=== PATIENT | female | born 1995 | race Caucasian/White ===

== ENCOUNTER 2016-03-23 02:45 | Emergency (ER) | payer MEDICAID ==
[~2016-03-23] VITALS: Ht 160 cm; Wt 97.0 kg
[~2016-03-23 02:45] MED LIST: PRENAT PO
[2016-03-23 03:00] VITALS: Ht 160 cm; Wt 97.0 kg
--- NOTE | 2016-03-23 03:35 | ERD ---
ER Documentation Chief Complaint Date/Time DATE: 03/23/16 TIME: 03:33 Chief Complaint pelvic pain,12 wks ,LPM 12/12/2015 HPI 20-year-old female presents to emergency department for complaints of pelvic pain radiating to the back started today. Patient described the pain as cramping pain, 4/10 scale, intermittent. Patient denies any nausea vomiting diarrhea or constipation. Patient denies hematuria or dysuria. Patient denies any vaginal bleeding. Patient is approximately 12 weeks . 1 para 0 0. Patient denies any vaginal itching or vaginal discharge. Patient did not take any medications up and symptoms. ROS All systems reviewed and are negative except as per history of present illness. Medications Home Meds Active Scripts Cephalexin* (Keflex*) 500 Mg Capsule, 500 MG PO QID for 7 Days, CAP Prov:MARIA ESTHER TALBOT SURGICAL INSTRUMENT TECHNICIAN 03/23/16 Acetaminophen* (Tylophen*) 500 Mg Capsule, 1 CAP PO Q6H Y for PAIN AND OR ELEVATED TEMP, #20 CAP Prov:MARIA ESTHER TALBOT SURGICAL INSTRUMENT TECHNICIAN 03/23/16 Reported Medications Multivit/Min/Fol Ac/Iron/Pren* ( S*) Unknown Strength Tab, PO DAILY, TAB 01/29/16 Allergies Allergies: Coded Allergies: No Known Allergy (Unverified , 01/29/16) PMhx/Soc Medical and Surgical Hx: pt denies Medical Hx, pt denies Surgical Hx History of Surgery: No Anesthesia Reaction: No Hx Neurological Disorder: No Hx Respiratory Disorders: No Hx Cardiac Disorders: No Hx Psychiatric Problems: No Hx Miscellaneous Medical Probl: No Hx Alcohol Use: No Hx Substance Use: No Hx Tobacco Use: No Smoking Status: Former smoker FmHx Family History: No coronary disease, No diabetes, No other Physical Exam Vitals Vital Signs Date Time Temp Pulse Resp B/P Pulse Ox O2 Delivery O2 Flow Rate FiO2 03/23/16 03:00 98.1 106 18 140/76 100 Physical Exam GENERAL: The patient is well developed and appropriate for usual state of health, in no apparent distress. CHEST: Clear to auscultation bilaterally. There are no rales, wheezes or rhonchi. HEART: Regular rate and rhythm. No murmurs, clicks, rubs or gallops. No S3 or S4. ABDOMEN: Soft, nontender and nondistended. Good bowel sounds. No rebound or guarding. No gross peritonitis. No gross organomegaly or masses. No Leos sign or McBurney point tenderness. BACK: No midline or flank tenderness. EXTREMITIES: Equal pulses bilaterally. There is no peripheral clubbing, cyanosis or edema. No focal swelling or erythema. Full range of motion. Grossly neurovascularly intact. NEURO: Alert and oriented. Cranial nerves 2-12 intact. Motor strength in all 4 extremities with 5/5 strength. Sensation grossly intact. Normal speech and gait. SKIN: There is no apparent rash or petechia. The skin is warm and dry. HEMATOLOGIC AND LYMPHATIC: There is no evidence of excessive bruising or lymphedema. No gross cervical, axillary, or inguinal lymphadenopathy. Result Diagram: 03/23/16 0430 Results 24 hrs Laboratory Tests Test 03/23/16 04:30 03/23/16 04:45 Basophils # 0.010^3/ul Basophils % 0.3% Beta HCG, Quantitative 91482.0mIU/ml Blood Morphology Comment Eosinophils # 0.710^3/ul Eosinophils % 5.9% Hematocrit 33.4% Hemoglobin 11.4g/dl Lymphocytes # 3.010^3/ul Lymphocytes % 25.2% Mean Corpuscular Hemoglobin 28.1pg Mean Corpuscular Hemoglobin Concent 34.1g/dl Mean Corpuscular Volume 82.5fl Mean Platelet Volume 8.2fl Monocytes # 0.610^3/ul Monocytes % 4.7% Neutrophils # 7.510^3/ul Neutrophils % 63.9% Nucleated Red Blood Cells # 0.010^3/ul Nucleated Red Blood Cells % 0.0/100WBC Platelet Count 74962^3/UL Red Blood Count 4.0410^6/ul Red Cell Distribution Width 13.9% White Blood Count 11.810^3/ul Urine Bacteria MODERATE Urine Bilirubin NEGATIVE Urine Clarity CLEAR Urine Color LT. YELLOW Urine Glucose NEGATIVE% Urine Hemoglobin NEGATIVE Urine Ketones NEGATIVE Urine Leukocyte Esterase 1+ Urine Microscopic RBC 0-2/HPF Urine Microscopic WBC 5-10/HPF Urine Nitrite NEGATIVE Urine Specific [place] 1.025 Urine Squamous Epithelial Cells MODERATE Urine Total Protein NEGATIVE Urine Urobilinogen 0.2 E.U./dL Urine pH 6.0 PROCEDURE: US OB. CLINICAL INDICATION: . Pelvic pain. Clinical estimated gestational age is 12 weeks 3 days with estimated date of delivery 10/02/2016 TECHNIQUE: Transabdominal imaging of the gravid uterus was performed. Images are reviewed on a high-resolution PACS workstation. COMPARISON: 01/31/2016 FINDINGS: Intrauterine is identified. The crown-rump length equals 5.79 cm. The estimated gestational age equals 12 weeks 2 days by ultrasound criteria. Normal cardiac activity is identified at 168 beats per minute. No subchorionic hemorrhage is identified. There is a 2.5 x 1.7 x 1.8 cm oval area of heterogeneous relative decreased echogenicity echotexture suggestive of an intramural and subserosal fibroid in the right anterior fundus mildly increased in size compared to the previous study. Neither ovary seen. No adnexal mass or free intrapelvic fluid is seen. IMPRESSION: Single live intrauterine with an estimated gestational age of 12 weeks 2 days by ultrasound criteria and an estimated date of delivery of 2016. Suggestive of uterine fibroid noted above mildly increased in size compared to previous study. Please see above. RPTAT: HJES .Rickie Mccormack MD, MD Date Time Electronically viewed and signed by .Rickie Mccormack MD, MD on 03/23/2016 04:00 .S/ CC: MARIA ESTHER TALBOT SURGICAL INSTRUMENT TECHNICIAN Procedures/MDM Medical Decision Making: Patient's pelvic pain most likely is from the urinary tract infection that she has, also can be from the growing she's on her second trimester and this is her first . She also has a uterine fibroid seen in the ultrasound, most likely can be causing the pain also. No symptoms of pyelonephritis at this time. No CVA tenderness noted. There is low suspicion for abdominal emergencies at this time. Patients abdominal exam is normal at this time. Ultrasound shows a viable . There is low suspicion for appendicitis, cholecystitis, abdominal aortic aneurysms or peritonitis at this time. There is low suspicion for sepsis. Patient appears well and is hemodynamically stable. Disposition: Home. Condition: Stable Prescription Tylenol, Keflex Instructions: Patient is advised to take medications as prescribed. Patient is advised to rest, increase fluid intake and do brat diet for next 1-2 days and progress as tolerated, do good perineal hygiene.. Patient is advised that if symptoms are worse, severe abdominal pain, uncontrolled vomiting, high fever, severe flank pain, worst signs and symptoms, to return to the emergency department immediately. Otherwise, patient can follow up with primary care doctor in 5-7 days. Departure Diagnosis: Primary Impression: UTI (urinary tract infection) Urinary tract infection type: acute cystitis Hematuria presence: without hematuria Qualified Code: N30.00 - Acute cystitis without hematuria Additional Impressions: Fibroid, uterine Uterine leiomyoma location: unspecified location Qualified Code: D25.9 - Uterine leiomyoma, unspecified location Pelvic pain Intrauterine Condition: Stable Patient Instructions: Pelvic Pain In : Unclear (2-3 Trimester), Understanding Urinary Tract Infections (UTIs), Uterine Fibroids Additional Instructions: Patient is advised to take medications as prescribed. Patient is advised to rest , increase fluid intake and do brat diet for next 1-2 days and progress as tolerated, do good perineal hygiene.. Patient is advised that if symptoms are worse, severe abdominal pain, uncontrolled vomiting, high fever, severe flank pain, worst signs and symptoms, to return to the emergency department immediately. Otherwise, patient can follow up with primary care doctor in 5-7 days. MARIA ESTHER TALBOT NP Mar 23, 2016 03:35
--- NOTE | 2016-03-23 04:00 | RADRPT ---
PROCEDURE: US OB. CLINICAL INDICATION: . Pelvic pain. Clinical estimated gestational age is 12 weeks 3 da ys with estimated date of delivery 10/02/2016 TECHNIQUE: Transabdominal imaging of the gravid uterus was performed. Images are reviewed on a h igh-resolution PACS workstation. COMPARISON: 01/31/2016 FINDINGS: Intrauterine is identified. The crown-rump length equals 5.79 cm. The estimated gestatio nal age equals 12 weeks 2 days by ultrasound criteria. Normal cardiac activity is identified a t 168 beats per minute. No subchorionic hemorrhage is identified. There is a 2.5 x 1.7 x 1.8 cm ova l area of heterogeneous relative decreased echogenicity echotexture suggestive of an intramural and subserosal fibroid in the right anterior fundus mildly increased in size compared to the previous [facility]. Neither ovary seen. No adnexal mass or free intrapelvic fluid is seen. IMPRESSION: Single live intrauterine with an estimated gestational age of 12 weeks 2 days by ultrasoun d criteria and an estimated date of delivery of 10/03/2016. Suggestive of uterine fibroid noted abov e mildly increased in size compared to previous study. Please see above. RPTAT: HJES .Rickie Mccormack MD, MD Date Time Electronically viewed and signed by .Rickie Mccormack MD, on 03/23/2016 04:00 .S/
[2016-03-23 04:54] LABS: BASOPHILS % 0.3 % (0.0-2.0); EOSINOPHILS # 0.7 10^3/ul (0.0-0.5); EOSINOPHILS % 5.9 % (0.0-7.0); HEMATOCRIT 33.4 % (37.0-47.0); HEMOGLOBIN 11.4 g/dl (12.0-16.0); LYMPHOCYTES % 25.2 % (18.0-55.0); MEAN CORPUSCULAR HEMOGLOBIN 28.1 pg (29.0-33.0); MEAN CORPUSCULAR HGB CONC 34.1 g/dl (32.0-37.0); MEAN CORPUSCULAR VOLUME 82.5 fl (72.0-104.0); MEAN PLATELET VOLUME 8.2 fl (7.4-10.4); MONOCYTE # 0.6 10^3/ul (0.3-0.9); MONOCYTES % 4.7 % (0.0-13.0); NEUTROPHIL # 7.5 10^3/ul (1.6-7.5); NEUTROPHILS % 63.9 % (30.0-74.0); PLATELET COUNT 281 10^3/UL (140-440); RED BLOOD COUNT 4.04 10^6/ul (4.20-5.40); RED CELL DISTRIBUTION WIDTH 13.9 % (11.5-14.5); UNCORRECTED WBC 11.8 10^3/ul (4.8-10.8); WHITE BLOOD COUNT 11.8 10^3/ul (4.8-10.8)
[2016-03-23 04:57] LABS: ADD UMIC YES; URINE BILIRUBIN (Dip) NEGATIVE (NEGATIVE); URINE BLOOD (Dip) NEGATIVE (NEGATIVE); URINE COLOR LT. YELLOW (YELLOW); URINE GLUCOSE (Dip) NEGATIVE (NEGATIVE); URINE KETONES (Dip) NEGATIVE (NEGATIVE); URINE LEUKOCYTE ESTERASE (Dip) 1+ (NEGATIVE); URINE NITRITE (Dip) NEGATIVE (NEGATIVE); URINE TOTAL PROTEIN (Dip) NEGATIVE (NEGATIVE); URINE UROBILINOGEN (Dip) 0.2 E.U./dL (0.1-1.0)
[2016-03-23 05:06] LABS: CONDITION 1
[2016-03-23 05:11] LABS: BACTERIA,URINE MODERATE; SQUAMOUS EPITHELIAL CELL,UR MODERATE; URINE RBCS 0-2 /HPF (0)
[2016-03-23] MEDS ORDERED: ACET500C5 PO (05:18)
[2016-03-23] MEDS ORDERED: CEPH-443 PO (05:18)
== END 2016-03-23 06:00 | disposition home or self-care (01) ==
LOC: FTE 02:45
DX: O26.891 Other specified pregnancy related conditions, first trimester (principal); O23.11 Infections of bladder in pregnancy, first trimester; O34.11 Maternal care for benign tumor of corpus uteri, first trimester; R10.2 Pelvic and perineal pain; Z87.891 Personal history of nicotine dependence; Z3A.12 12 weeks gestation of pregnancy
CPT/HCPCS: 36415; 76805; 81001; 81003; 84702; 85025; 86900; 86901

== ENCOUNTER 2016-05-08 19:15 | Emergency (ER) | payer MEDICAID ==
[~2016-05-08] VITALS: Ht 160 cm; Wt 97.0 kg
[~2016-05-08 19:15] MED LIST changes: +ACET500C5 PO; +CEPH-443 PO
[2016-05-08 19:40] VITALS: Ht 160 cm; Wt 97.0 kg
[2016-05-08 21:18] LABS: ADD UMIC YES; URINE BILIRUBIN (Dip) NEGATIVE (NEGATIVE); URINE BLOOD (Dip) NEGATIVE (NEGATIVE); URINE GLUCOSE (Dip) NEGATIVE (NEGATIVE); URINE KETONES (Dip) TRACE (NEGATIVE); URINE LEUKOCYTE ESTERASE (Dip) TRACE (NEGATIVE); URINE NITRITE (Dip) NEGATIVE (NEGATIVE); URINE TOTAL PROTEIN (Dip) NEGATIVE (NEGATIVE); URINE UROBILINOGEN (Dip) 1.0 E.U./dL (0.1-1.0)
[2016-05-08 21:21] LABS: URINE COLOR YELLOW (YELLOW)
--- NOTE | 2016-05-08 21:34 | RADRPT ---
PROCEDURE: US OB. US OB Transabd 03/20 Tri CLINICAL INDICATION: lower pelvic pain, back pain TECHNIQUE: Multiple sonographic images of the pelvis were obtained. The images were reviewed on a PACS workstation. COMPARISON: No prior studies are available for comparison. FINDINGS: The cervix is closed with a length of . There is a single viable intrauterine gestation. Cardiac activity is present with beats per minute . There is a breech presentation. Measurements were made in order to determine age. The results are as follows: BPD =4.2 cm. HC =15.5 cm. AC =5.5 cm. FL =2.9 cm. Estimated gestational age of approximately 18 weeks and 5 days. The estimated date of delivery is 10/04/2016. Estimated delivery date by last menstrual period is 0 09/30/2016 The EFW = 265 grams, 26 percentile . The placenta is anterior, grade 0, with a placental berger identified. There is no evidence for an abr uption or placenta previa. There is a normal appearing amount of amniotic fluid with maximum vertical pocket measuring 5.0 cm. There are no adnexal masses. IMPRESSION: Single viable intrauterine gestation of approximately 18 weeks and 5 days. The estimated date of de livery is 10/04/2016 RPTAT: HBST . .Yazan Davis MD, Date Time Electronically viewed and signed by .Yazan Davis MD, on 05/08/2016 21:34 .T/
[2016-05-08 21:35] LABS: BACTERIA,URINE MODERATE; MUCUS,URINE FEW; SQUAMOUS EPITHELIAL CELL,UR MODERATE; URINE RBCS 0-2 /HPF (0)
[2016-05-08] MEDS ORDERED: CEPH-443 PO (22:25)
[2016-05-08] MEDS ORDERED: ACET325T33 PO (22:25)
[2016-05-08 22:32] VITALS: BP 141/71; PULSE 88; RESP 18; TEMP 98.3
--- NOTE | 2016-05-08 22:34 | ERD ---
ER Documentation Chief Complaint Date/Time DATE: 05/08/16 TIME: 22:27 Chief Complaint 19 wks , lower abd pain, back pain HPI 20-year-old female with no significant past medical history is a presents the ED complaining of lower pelvic pain and lower back pain that started 2 days ago. Reports that she has some dysuria but denies any hematuria, urgency, frequency, burning with urination. Denies any fever, chills, chest pain, shortness of breath, cough, rhinorrhea, rashes. Denies any vaginal bleeding or vaginal discharge. Reports that her last menses was on December 13, 2015. ROS All systems reviewed and are negative except as per history of present illness. Medications Home Meds Active Scripts Acetaminophen* (Tylenol*) 325 Mg Tablet, 2 TAB PO Q8 Y for PAIN AND OR ELEVATED TEMP, #20 TAB Prov:BERNARDO HERNANDEZ PA-C 05/08/16 Cephalexin* (Keflex*) 500 Mg Capsule, 500 MG PO QID for 7 Days, CAP Prov:BERNARDO HERNANDEZ PA-C 05/08/16 Cephalexin* (Keflex*) 500 Mg Capsule, 500 MG PO QID for 7 Days, CAP Prov:MARIA ESTHER TALBOT INSPECTOR ELECTROMECHANICAL 03/23/16 Acetaminophen* (Tylophen*) 500 Mg Capsule, 1 CAP PO Q6H Y for PAIN AND OR ELEVATED TEMP, #20 CAP Prov:MARIA ESTHER TALBOT INSPECTOR ELECTROMECHANICAL 03/23/16 Reported Medications Multivit/Min/Fol Ac/Iron/Pren* ( S*) Unknown Strength Tab, PO DAILY, TAB 01/29/16 Allergies Allergies: Coded Allergies: No Known Allergy (Unverified , 01/29/16) PMhx/Soc History of Surgery: No Anesthesia Reaction: No Hx Neurological Disorder: No Hx Respiratory Disorders: No Hx Cardiac Disorders: No Hx Psychiatric Problems: No Hx Miscellaneous Medical Probl: No (DENIES MED AND SURG HX.) Hx Alcohol Use: No Hx Substance Use: No Hx Tobacco Use: Yes Smoking Status: Never smoker Physical Exam Vitals Vital Signs Date Time Temp Pulse Resp B/P Pulse Ox O2 Delivery O2 Flow Rate FiO2 05/08/16 19:40 98.1 114 20 135/85 100 Physical Exam Const: [id number], well-nourished. In no acute distress. Head: Atraumatic, normocephalic Eyes: Normal Conjunctiva without injection. No purulent discharge. ENT: Normal external ear, nose. Moist oropharynx without tonsillar exudates. Non -erythematous pharynx. Uvula midline. No drooling. No trismus. Neck: No cervical midline tenderness. Full range of motion. No meningismus. No cervical lymphadenopathy. No JVD. Resp: Clear to auscultation bilaterally. No wheezing, rhonchi, rales, or crackles. No accessory muscle use. No retractions. Cardio: Regular rate and rhythm. No murmurs, rubs or gallops. Abd: Soft, lower suprapubic tenderness, non distended. Normal bowel sounds. No palpable masses. No rebound tenderness. No guarding. Negative McBurney's point. Negative psoas sign. Negative obturator sign. Skin: No petechiae or rashes Back: No midline tenderness. No CVA tenderness. Rest palpation of the bilateral lumbar muscles. Ext: No cyanosis, or edema. Neur: Awake and alert. Normal gait. Normal coordination. Psych: Normal Mood and Affect Results 24 hrs Laboratory Tests Test 05/08/16 20:36 05/08/16 20:56 Urine Color YELLOW Urine Clarity SLIGHTLY CLOUDY Urine pH 6.5 Urine Specific [place] 1.020 Urine Ketones TRACE Urine Nitrite NEGATIVE Urine Bilirubin NEGATIVE Urine Urobilinogen 1.0 E.U./dL Urine Leukocyte Esterase TRACE Urine Microscopic RBC 0-2/HPF Urine Microscopic WBC 10-25/HPF Urine Squamous Epithelial Cells MODERATE Urine Bacteria MODERATE Urine Mucus FEW Urine Hemoglobin NEGATIVE Urine Glucose NEGATIVE% Urine Total Protein NEGATIVE Beta HCG, Quantitative 49463.0mIU/ml Procedures/MDM This is a 20-year-old female with no significant past medical history is a presents the ED complaining of lower abdominal and lower back pain associated with dysuria. Patient is afebrile and nontoxic-appearing. A pelvic ultrasound, beta Hcg, urinalysis was ordered to further evaluate patient. Urinalysis showed trace leukocyte esterase 10-25. PROCEDURE: US OB. US OB Transabd 03/20 Tri CLINICAL INDICATION: lower pelvic pain, back pain TECHNIQUE: Multiple sonographic images of the pelvis were obtained. The images were reviewed on a PACS workstation. COMPARISON: No prior studies are available for comparison. FINDINGS: The cervix is closed with a length of . There is a single viable intrauterine gestation. Cardiac activity is present with beats per minute. There is a breech presentation. Measurements were made in order to determine age. The results are as follows: BPD = 4.2 cm. HC = 15.5 cm. AC = 5.5 cm. FL = 2.9 cm. Estimated gestational age of approximately 18 weeks and 5 days. The estimated date of delivery is 10/04/2016. Estimated delivery date by last menstrual period is 09/30/2016 The EFW = 265 grams, 26 percentile . The placenta is anterior, grade 0, with a placental berger identified. There is no evidence for an abruption or placenta previa. There is a normal appearing amount of amniotic fluid with maximum vertical pocket measuring 5.0 cm. There are no adnexal masses. IMPRESSION: Single viable intrauterine gestation of approximately 18 weeks and 5 days. The estimated date of delivery is 10/04/2016 Patient has a single viable intrauterine of 18 weeks and 5 days. Patient also has a urinary tract infection and is appropriate for outpatient management with a course of antibiotics. Low suspicion for symptomatic anemia, ectopic , sepsis, PID, appendicitis, ovarian torsion, tubo-ovarian abscess, surgical abdomen, or other emergent conditions. Patient was educated that there is a risk for threatened . Patient is ambulating here in the ED without difficulty. Denies saddle anesthesia, numbness or tingling, urine or bowel incontinence, weakness. Low suspicion for cauda equina syndrome, cord compression, nephrolithiasis, aortic aneurysm, aortic dissection, epidural abscess, spinal hematoma, malignancy, pyelonephritis, degenerative disc disease , spinal stenosis, or other emergent conditions. Discharge medications: Keflex, Tylenol Patient to follow up with [facility] in 2 days for further evaluation and treatment. Patient is to return sooner to the ED for any worsening symptoms. Patient's questions were answered. Patient understood and agreed with discharge plan. Departure Diagnosis: Primary Impression: Back pain during Additional Impression: Urinary tract infection Urinary tract infection type: site unspecified Hematuria presence: without hematuria Qualified Code: N39.0 - Urinary tract infection without hematuria, site unspecified Condition: Stable Patient Instructions: Back Pain During , Understanding Urinary Tract Infections (UTIs), Back Pain During : Moving Safely, Back Pain During : Positioning Yourself, Relieving Back Pain During : Wall Stretch, Body Bend Referrals: [facility] YOU HAVE RECEIVED A MEDICAL SCREENING EXAM AND THE RESULTS INDICATE THAT YOU DO NOT HAVE A CONDITION THAT REQUIRES URGENT TREATMENT IN THE EMERGENCY DEPARTMENT. FURTHER EVALUATION AND TREATMENT OF YOUR CONDITION CAN WAIT UNTIL YOU ARE SEEN IN YOUR DOCTORS OFFICE WITHIN THE NEXT 1-2 DAYS. IT IS YOUR RESPONSIBILITY TO MAKE AN APPOINTMENT FOR FOLOW-UP CARE. IF YOU HAVE A PRIMARY DOCTOR --you should call your primary doctor and schedule an appointment IF YOU DO NOT HAVE A PRIMARY DOCTOR YOU CAN CALL OUR PHYSICIAN REFERRAL HOTLINE AT IF YOU CAN NOT AFFORD TO SEE A PHYSICIAN YOU CAN CHOSE FROM THE FOLLOWING [facility] [address] [facility]. [facility] [address] [facility]. [facility] [address] [facility] [facility] [address]. [facility] [address] [facility]. [facility] [address] [facility]. [facility] YOU HAVE RECEIVED A MEDICAL SCREENING EXAM AND THE RESULTS INDICATE THAT YOU DO NOT HAVE A CONDITION THAT REQUIRES URGENT TREATMENT IN THE EMERGENCY DEPARTMENT. FURTHER EVALUATION AND TREATMENT OF YOUR CONDITION CAN WAIT UNTIL YOU ARE SEEN IN YOUR DOCTORS OFFICE WITHIN THE NEXT 1-2 DAYS. IT IS YOUR RESPONSIBILITY TO MAKE AN APPOINTMENT FOR FOLOW-UP CARE. IF YOU HAVE A PRIMARY DOCTOR --you should call your primary doctor and schedule and appointment IF YOU DO NOT HAVE A PRIMARY DOCTOR YOU CAN CALL OUR PHYSICIAN REFERRAL HOTLINE AT . IF YOU CAN NOT AFFORD TO SEE A PHYSICIAN YOU CAN CHOSE FROM THE FOLLOWING [facility]: [facility] [address] [place] [address] [facility] [address] [place] [address] [facility] [address] [place] [address] [facility] [place] [address] [place] [address] OFFICE FAX , [place] [address] [place], [place] [id number] DR. WHITFIELD, [place] [address] [place] [address] DR CONDON, [facility] [address], [address], [place] [address] DR GOLD, [facility] [address] [facility], [place] [address] [facility] [address] [place] [address] [address] [facility] [address] - THANIA MAURICIO [address] [address] DR ALONSO, [place] [address] [facility]. [address], [place] [address] CORINE SUAREZ [address] [place], [place] [id number] [facility] Hours: 8:00 am - 5:00 pm Additional Instructions: FOLLOW UP WITH YOUR [facility] in 2-3 days for further evaluation. Return to this facility if you are not improving as expected. BERNARDO HERNANDEZ PA-C May 08, 2016 22:34
== END 2016-05-08 22:32 | disposition home or self-care (01) ==
LOC: FTE 19:15
DX: O99.89 Other specified diseases and conditions complicating pregnancy, childbirth and the puerperium (principal); M54.5 Low back pain; O23.42 Unspecified infection of urinary tract in pregnancy, second trimester; O99.332 Smoking (tobacco) complicating pregnancy, second trimester; F17.210 Nicotine dependence, cigarettes, uncomplicated; R10.2 Pelvic and perineal pain; Z3A.19 19 weeks gestation of pregnancy
CPT/HCPCS: 76805; 81001; 81003; 84702; Z7502

== ENCOUNTER 2016-07-04 07:33 | Outpatient (CLI) | payer MEDICAID ==
[~2016-07-04] VITALS: Ht 157.5 cm; Wt 99.1 kg
[~2016-07-04 07:33] MED LIST changes: +ACET325T33 PO
[2016-07-04 07:51] VITALS: BP 128/81; PULSE 120; RESP 18; Ht 157.5 cm; Wt 99.1 kg
--- NOTE | 2016-07-04 09:29 | RADRPT ---
PROCEDURE: OB ultrasound for biophysical profile CLINICAL INDICATION: Decreased movement TECHNIQUE: Multiple sonographic images of the pelvis were obtained. Transabdominal views of the g ravid uterus are available for review. The images were reviewed on a PACS workstation. COMPARISON: None FINDINGS: breathing movement = 2/2 tone = 2/2 motion = 2/2 SATURNINO = 2/2 SATURNINO = 15.9 cm Single live intrauterine with cardiac activity of 159 bpm. position is cephal ic. The placenta is anterior. IMPRESSION: 1. Single live intrauterine gestation. 2. Biophysical profile = 8/8. 3. SATURNINO = 15.9 cm. RPTAT: HH .Padmini Fitzgerald MD, MD Date Time Electronically viewed and signed by .Padmini Fitzgerald MD, on 07/04/2016 09:29 .G/
[2016-07-04] MEDS ORDERED: UDROBDM PO ×2 (09:31→09:32)
--- NOTE | 2016-07-04 12:31 | QN ---
Documentation Comment 20 years old 1. para 0 at 27 weeks and 3 days chief complaint of cough biophysical profile normal,patient advised to go to the emergency room for her upper respiratory symptoms and cough to follow with the clinic thereafter RIANNA TAVERAS MD July 04, 2016 12:31
== END 2016-07-04 09:40 | disposition home or self-care (01) ==
LOC: OBT 07:33 → L-D 07:33 → OBT 07:40
PROVIDERS: ATTEND Obstetrics & Gynecology
DX: O26.892 Other specified pregnancy related conditions, second trimester (principal); R05 Cough; Z3A.27 27 weeks gestation of pregnancy
CPT/HCPCS: 76818; G0463

== ENCOUNTER 2016-08-20 16:21 | Outpatient (CLI) | payer MEDICAID ==
[~2016-08-20] VITALS: Ht 157.5 cm; Wt 102.7 kg
[~2016-08-20 16:21] MED LIST changes: -ACET325T33 PO; -ACET500C5 PO; -CEPH-443 PO; +UDROBDM PO
[2016-08-20 16:57] VITALS: Ht 157.5 cm; Wt 102.7 kg
--- NOTE | 2016-08-20 17:23 | RADRPT ---
PROCEDURE: Obstetrical ultrasound CLINICAL INDICATION: R/O Preeclampsia TECHNIQUE: Multiple sonographic images of the pelvis were obtained. The images were reviewed on a PACS workstation. COMPARISON: None FINDINGS: The cervix is not well visualized. There is a single viable intrauterine gestation. Cardiac activity is present with 148 beats per minute. There is a vertex presentation. The placenta is anterior. There is no evidence for an abruption or placenta previa. There is a subjectively normal amount of amniotic fluid. Measurements were made in order to determine age. The results are as follows (cm): BPD =8.50 HC =30.24 AC =29.78 FL =6.48 Estimated gestational age by ultrasound of approximately 33 weeks, 5 days. The estimated date of delivery by ultrasound is 10/03/2016. Estimated gestational age by LMP of approximately 34 weeks, 1 day. The estimated date of delivery by LMP is 09/30/2016. EFW = 2255 grams (30th percentile) IMPRESSION: Single viable intrauterine gestation of approximately 33 weeks, 5 days . The estimated date of delivery is 10/03/2016 . Dating by ultrasound is within 3 days of dating by LMP. Cephalic presentation. Estimated weight is in the 30th percentile. RPTAT: EE Physician Nagi Date Time Electronically viewed and signed by Physician Nagi on 08/20/2016 17:23 /
[2016-08-20 17:33] LABS: ADD UMIC YES; UR ASCORBIC ACID NEGATIVE (NEGATIVE); UR BILIRUBIN (Dip) NEGATIVE (NEGATIVE); UR BLOOD (Dip) NEGATIVE (NEGATIVE); UR CLARITY SLIGHTLY CLOUDY (CLEAR); UR COLOR YELLOW (YELLOW); UR GLUCOSE (Dip) NEGATIVE (NEGATIVE); UR KETONES (Dip) NEGATIVE (NEGATIVE); UR LEUKOCYTE ESTERASE (Dip) 2+ Leu/ul (NEGATIVE); UR MUCUS FEW /HPF (NONE SEEN); UR NITRITE (Dip) NEGATIVE (NEGATIVE); UR RBC 2 /HPF (0-5); UR SPECIFIC GRAVITY (Dip) 1.026 (1.003-1.030); UR SQUAMOUS EPITHELIAL CELL MODERATE /HPF (FEW); UR TOTAL PROTEIN (Dip) NEGATIVE (NEGATIVE); UR UROBILINOGEN (Dip) 1+ mg/dL (NEGATIVE)
--- NOTE | 2016-08-20 17:35 | RADRPT ---
PROCEDURE: Biophysical profile CLINICAL INDICATION: distress TECHNIQUE: Color and cuevas-scale ultrasound images of an intrauterine gestation were obtained. COMPARISON: July 04, 2016 FINDINGS: A single live intrauterine gestation is identified in cephalic position with an estimated hear t rate of 141 beats per minute. The placenta is located anteriorly as a grade og II. The cervix is obscured by head shadows. No evidence of abruption identified. SATURNINO is 10.0 cm. movement 2/2. tone 2/2. breathing movement 2/2. Qualitative AFV 2/2 Total biophysical profile 09/22 IMPRESSION: 09/22 biophysical profile. RPTAT: AA .Jp Sharma MD, Date Time Electronically viewed and signed by .Jp Sharma MD, on 08/20/2016 17:35 .P/
[2016-08-20 17:41] LABS: ADD SCAN DIFF NO
[2016-08-20 17:44] LABS: BASOPHILS % 0.2 % (0.0-2.0); EOSINOPHILS # 0.3 10^3/ul (0.0-0.5); EOSINOPHILS % 2.6 % (0.0-7.0); HEMATOCRIT 30.7 % (37.0-47.0); HEMOGLOBIN 10.3 g/dl (12.0-16.0); LYMPHOCYTES # 2.1 10^3/ul (0.8-2.9); LYMPHOCYTES % 19.4 % (15.0-51.0); MEAN CORPUSCULAR HEMOGLOBIN 28.4 pg (29.0-33.0); MEAN CORPUSCULAR HGB CONC 33.6 g/dl (32.0-37.0); MEAN CORPUSCULAR VOLUME 84.6 fl (82.0-101.0); MEAN PLATELET VOLUME 9.8 fl (7.4-10.4); MONOCYTE # 0.5 10^3/ul (0.3-0.9); MONOCYTES % 4.5 % (0.0-11.0); NEUTROPHIL # 7.8 10^3/ul (1.6-7.5); NEUTROPHILS % 72.2 % (39.0-77.0); PLATELET COUNT 224 10^3/UL (140-415); RED BLOOD COUNT 3.63 10^6/ul (4.20-5.40); RED CELL DISTRIBUTION WIDTH 13.7 % (11.5-14.5); WHITE BLOOD COUNT 10.8 10^3/ul (4.8-10.8)
[2016-08-20 17:58] LABS: INR 0.92; PROTIME 12.4 Sec (12.2-14.2)
[2016-08-20 17:59] LABS: PARTIAL THROMBOPLASTIN TIME 26.8 Sec (25.0-35.0)
[2016-08-20 18:01] LABS: ALBUMIN 4.1 g/dl (3.3-4.9); ALBUMIN/GLOBULIN RATIO 1.24; BILIRUBIN,INDIRECT 0.1 mg/dl (0-1.1); BILIRUBIN,TOTAL 0.1 mg/dl (0.2-1.3); CALCIUM 9.4 mg/dl (8.4-10.2); CREATININE 0.56 mg/dl (0.44-1.00); POTASSIUM 4.3 mmol/L (3.5-5.1); TOTAL PROTEIN 7.4 g/dl (6.1-8.1)
--- NOTE | 2016-08-20 18:44 | TRIAGE ---
OB Triage Datetime Report Generated by CPN: 08/20/2016 18:44 Datetime: 08/20/2016 18:30 Stage of : OB Triage Maternal Assessment Level of Consciousness: Fully Conscious Labor Evaluation Frequency: OCCASIONAL Monitor Mode: External Duration (sec)2399: 30-50 Quality: Mild Resting Tone [place]: Relaxed Heart Rate FHR Baseline Rate: 125 Monitor Mode: External US Variability: Moderate 6-25 bpm Accelerations: 15X15 Decelerations: None Pain Assessment Pain Scale: 0 Pain Goal: 3 Vaginal Exam Membrane Status: Intact Vaginal Bleeding: None Datetime: 08/20/2016 17:28 Time of Arrival: 08/20/2016 16:18 EGA: 34.1 Arrived By: Ambulatory Arrived From: Home Chief Complaint: Elevated BPs in clinic Movement: Present Contractions: Denies/Absent Rupture of Membranes: Denies Vaginal Discharge: Denies Recent Sexual Intercouse: Denies Abdominal Trauma: Not Applicable Time Provider Notified: 08/20/2016 16:55 Provider Notified: Foroohar Initial Plan: BPP/SATURNINO, NST, EFW, PIH labs, UA Datetime: 08/20/2016 17:08 Stage of : OB Triage Maternal Assessment Level of Consciousness: Fully Conscious Labor Evaluation Frequency: NONE Monitor Mode: External Resting Tone [place]: Relaxed Heart Rate FHR Baseline Rate: 135 Monitor Mode: External US Variability: Moderate 6-25 bpm Accelerations: 15X15 Decelerations: None Category: Category I Pain Assessment Pain Scale: 0 Pain Goal: 3 Vaginal Exam Membrane Status: Intact Vaginal Bleeding: None Datetime: 08/20/2016 16:42 Monitor Mode: External Monitor Mode: External US Datetime: 08/20/2016 16:33 Stage of : OB Triage Datetime: 08/20/2016 16:30 Assessment Type: Triage Maternal Assessment Level of Consciousness: Fully Conscious DTR's/Clonus: DTRs 2+; No Clonus Headache: Denies Blurred Vision: No Respiratory Effort: Unlabored; Regular Rhythm; Equal Expansion Breath Sounds, Left: Clear and Equal Breath Sounds, Right: Clear and Equal Nausea/Vomiting: Denies RUQ Epigastric Pain: Denies Lower Extremities Edema: Bilateral Lower Extremities Degree: 1+ Upper Extremities Edema: Bilateral Upper Extremities Degree: 1+ Facial Edema: None Fall Risk Assessment History of Falling: (0) No Secondary Diagnosis: (0) No Ambulatory Aid: (0) Bedrest/Nurse Assist IV Therapy: (0) No Gait: (0) Normal/Bedrest/Immobile Mental Status: (0) Oriented to Own Ability Fall Score: 0 Fall Risk Score Definition: No Risk: No action required Datetime: 07/04/2016 08:30 Stage of : OB Triage Maternal Assessment Level of Consciousness: Fully Conscious Labor Evaluation Frequency: NONE Monitor Mode: External Resting Tone [place]: Relaxed Heart Rate FHR Baseline Rate: 145 Monitor Mode: External US Variability: Moderate 6-25 bpm Accelerations: 15X15 Decelerations: Variable (Annotations: AGA) Pain Assessment Pain Scale: 0 Pain Presence: None/Denies Pain Type: N/A Pain Goal: 3 Vaginal Exam Membrane Status: Intact Vaginal Bleeding: None Datetime: 07/04/2016 07:45 Assessment Type: Triage Maternal Assessment Level of Consciousness: Fully Conscious DTR's/Clonus: DTRs 2+; No Clonus Headache: Denies Blurred Vision: No Respiratory Effort: Unlabored; Regular Rhythm; Equal Expansion Breath Sounds, Left: Clear and Equal Breath Sounds, Right: Clear and Equal Nausea/Vomiting: Denies RUQ Epigastric Pain: Denies Lower Extremities Edema: None Degree: None Upper Extremities Edema: None Degree: None Facial Edema: None Fall Risk Assessment History of Falling: (0) No Secondary Diagnosis: (0) No Ambulatory Aid: (0) Bedrest/Nurse Assist IV Therapy: (0) No Gait: (0) Normal/Bedrest/Immobile Mental Status: (0) Oriented to Own Ability Fall Score: 0 Fall Risk Score Definition: No Risk: No action required Datetime: 07/04/2016 07:44 Time of Arrival: 07/04/2016 07:26 EGA: 27.3 Arrived By: Wheelchair Arrived From: Home Chief Complaint: PT HERE C/O COUGH/VOMMITTING/DFM Movement: Decreased Contractions: Denies/Absent Rupture of Membranes: Denies Vaginal Bleeding: None Vaginal Discharge: Denies Recent Sexual Intercouse: Denies Abdominal Trauma: Not Applicable Patient Complaints: Vomiting; Cough Additional Patient Complaints: BPP Time Provider Notified: 07/04/2016 08:03 Provider Notified: DARCY Datetime: 07/04/2016 07:42 Monitor Mode: External Monitor Mode: External US
--- NOTE | 2016-08-21 13:34 | CONS ---
Date/Time of Note Date/Time of Note DATE: 08/21/16 TIME: 13:27 Consultation Date/Type/Reason Admit Date/Time August 20, 2016 OB triage consult Reason for Consultation This patient is a 21 years old 1 para 0 with estimated date of confinement of September 30, 2016 which makes her 33 weeks and 5 days today. She came to OB triage due to gestational diabetes and elevated blood pressure and to rule out possible -induced hypertension . On examination she is a fairly overweight lady with slightly elevated blood pressure over 140/70 and 130/68, respirations 18, temperature 98 point. Laboratory Tests Test 08/20/16 16:30 08/20/16 17:30 Urine Color YELLOW Urine Clarity SLIGHTLY CLOUDY Urine pH 6.0 Urine Specific [place] 1.026 Urine Ketones NEGATIVEmg/dL Urine Nitrite NEGATIVEmg/dL Urine Bilirubin NEGATIVEmg/dL Urine Urobilinogen 1+mg/dL Urine Leukocyte Esterase 2+Jordan/ul Urine Microscopic RBC 2/HPF Urine Microscopic WBC 13/HPF Urine Squamous Epithelial Cells MODERATE/HPF Urine Mucus FEW/HPF Urine Hemoglobin NEGATIVEmg/dL Urine Glucose NEGATIVEmg/dL Urine Total Protein NEGATIVEmg/dl White Blood Count 10.810^3/ul Red Blood Count 3.6310^6/ul Hemoglobin 10.3g/dl Hematocrit 30.7% Mean Corpuscular Volume 84.6fl Mean Corpuscular Hemoglobin 28.4pg Mean Corpuscular Hemoglobin Concent 33.6g/dl Red Cell Distribution Width 13.7% Platelet Count 61957^3/UL Mean Platelet Volume 9.8fl Neutrophils % 72.2% Lymphocytes % 19.4% Monocytes % 4.5% Eosinophils % 2.6% Basophils % 0.2% Nucleated Red Blood Cells % 0.0/100WBC Neutrophils # 7.810^3/ul Lymphocytes # 2.110^3/ul Monocytes # 0.510^3/ul Eosinophils # 0.310^3/ul Basophils # 0.010^3/ul Nucleated Red Blood Cells # 0.010^3/ul Prothrombin Time 12.4Sec Prothrombin Time Ratio 1.0 INR International Normalized Ratio 0.92 Activated Partial Thromboplast Time 26.8Sec Sodium Level 139mmol/L Potassium Level 4.3mmol/L Chloride Level 102mmol/L Carbon Dioxide Level 25mmol/L Anion Gap 16 Blood Urea Nitrogen 11mg/dl Creatinine 0.56mg/dl Glucose Level 85mg/dl Uric Acid 5.0mg/dl Calcium Level 9.4mg/dl Total Bilirubin 0.1mg/dl Direct Bilirubin 0.00mg/dl Indirect Bilirubin 0.1mg/dl Aspartate Amino Transf (AST/SGOT) 22IU/L Alanine Aminotransferase (ALT/SGPT) 31IU/L Alkaline Phosphatase 136IU/L Total Protein 7.4g/dl Albumin 4.1g/dl Globulin 3.30g/dl Albumin/Globulin Ratio 1.24 Constitutional: No chills, No diaphoresis, No disoriented, No febrile, No improved, No no complaints, No other, No poor po, No requiring IVF, No requiring O2 Eyes: No discharge, No no complaints, No other, No pain, No redness, No visual change ENT: No bleeding, No congestion, No discharge, No dysphagia, No no complaints, No other, No pain, No sore throat Respiratory: No cough, No no complaints, No other, No pain, No pleuritic pain, No shortness of breath, No sputum, No wheezing Cardiovascular: No chest pain, No edema, No lightheadedness, No no complaints, No orthopenea, No other, No palpitations, No paroxysmal nocturnal dyspnea Gastrointestinal: No blood, No constipation, No decreased appetite, No diarrhea , No flatus, No nausea, No no complaints, No other, No pain, No passing stool, No vomiting Genitourinary: other (Pelvic exam was not performed due to the fact that patient did not have any contractions), No bleeding, No discharge, No dysuria, No flank pain, No hematuria, No no complaints Musculoskeletal: No back pain, No bone/joint pain, No neck pain, No no complaints, No other, No restricted range of motion, No swelling Skin: No bruising, No erythema, No laceration, No no complaints, No other, No pruritis, No rash, No skin lesions Neurologic: other (Her knee-jerk reflexes no), No confusion, No dizziness, No focal-weakness, No headache, No no complaints , No seizure, No syncope Additional Comments On review her lab tests she was a slightly anemic with hemoglobin of 10.3 hematocrit 30.7 otherwise CBC was normal Her urinalysis was basically normal except for 1+ urobilinogen and 2+ leukoesterase and a few WBCs, the liver function tests were basically normal electrolytes were normal and alkaline phosphatase was slightly elevated which is not abnormal for her total bilirubin however was normal under 0.1 We did an ultrasound study report was; single live intrauterine gestation with heart rate of 141/min .the placenta was anterior grade 2 not previa. her biophysical profile 09/22 with SATURNINO of 10.07 The estimated weight was 2255 g which was the 30th percentile With these finding the preeclampsia was ruled out at this time however she would be closely observed due to her gestational diabetes and slightly elevated blood pressure and the fact that she has somewhat overweight 226 pounds End of dictation thank you Social History Smoking Status: Never smoker Exam/Review of Systems Vital Signs Vitals Vital Signs Date Time Temp Pulse Resp B/P Pulse Ox O2 Delivery O2 Flow Rate FiO2 08/20/16 17:00 98.9 Results Result Diagram: 08/20/16 1730 08/20/16 1730 Results 24 hrs Laboratory Tests Test 08/20/16 16:30 08/20/16 17:30 Urine Color YELLOW Urine Clarity SLIGHTLY CLOUDY A Urine pH 6.0 Urine Specific [place] 1.026 Urine Ketones NEGATIVE Urine Nitrite NEGATIVE Urine Bilirubin NEGATIVE Urine Urobilinogen 1+ H Urine Leukocyte Esterase 2+ H Urine Microscopic RBC 2 Urine Microscopic WBC 13 H Urine Squamous Epithelial Cells MODERATE Urine Mucus FEW A Urine Hemoglobin NEGATIVE Urine Glucose NEGATIVE Urine Total Protein NEGATIVE White Blood Count 10.8 Red Blood Count 3.63 L Hemoglobin 10.3 L Hematocrit 30.7 L Mean Corpuscular Volume 84.6 Mean Corpuscular Hemoglobin 28.4 L Mean Corpuscular Hemoglobin Concent 33.6 Red Cell Distribution Width 13.7 Platelet Count 224 Mean Platelet Volume 9.8 Neutrophils % 72.2 Lymphocytes % 19.4 Monocytes % 4.5 Eosinophils % 2.6 Basophils % 0.2 Nucleated Red Blood Cells % 0.0 Neutrophils # 7.8 H Lymphocytes # 2.1 Monocytes # 0.5 Eosinophils # 0.3 Basophils # 0.0 Nucleated Red Blood Cells # 0.0 Prothrombin Time 12.4 Prothrombin Time Ratio 1.0 INR International Normalized Ratio 0.92 Activated Partial Thromboplast Time 26.8 Sodium Level 139 Potassium Level 4.3 Chloride Level 102 Carbon Dioxide Level 25 Anion Gap 16 Blood Urea Nitrogen 11 Creatinine 0.56 Glucose Level 85 Uric Acid 5.0 Calcium Level 9.4 Total Bilirubin 0.1 L Direct Bilirubin 0.00 Indirect Bilirubin 0.1 Aspartate Amino Transf (AST/SGOT) 22 Alanine Aminotransferase (ALT/SGPT) 31 Alkaline Phosphatase 136 H Total Protein 7.4 Albumin 4.1 Globulin 3.30 H Albumin/Globulin Ratio 1.24 JOSI CONDON MD Aug 21, 2016 13:34
== END 2016-08-20 18:30 | disposition home or self-care (01) ==
LOC: OBT 16:21 → L-D 16:21 → OBT 18:30
PROVIDERS: ATTEND Obstetrics & Gynecology
DX: O24.419 Gestational diabetes mellitus in pregnancy, unspecified control (principal); O16.3 Unspecified maternal hypertension, third trimester; Z3A.33 33 weeks gestation of pregnancy
CPT/HCPCS: 76815; 76818; 80053; 81001; 84560; 85025; 85610; 85730; Z7500; G0463

== ENCOUNTER 2016-09-14 18:45 | Inpatient (IN) | END 2016-09-17 18:37 | disposition home or self-care (01) | DRG 775 | DX: O69.81X0 Labor and delivery complicated by cord around neck, without compression, not applicable or unspecified (principal); O24.429 Gestational diabetes mellitus in childbirth, unspecified control; Z3A.37 37 weeks gestation of pregnancy; Z37.0 Single live birth ==

== ENCOUNTER 2016-09-28 00:23 | Emergency (ER) | payer MEDICAID ==
[~2016-09-28] VITALS: Ht 157.5 cm; Wt 95.0 kg
[~2016-09-28 00:23] MED LIST changes: -UDROBDM PO
[2016-09-28 00:39] VITALS: Ht 157.5 cm; Wt 95.0 kg
[2016-09-28] MEDS ORDERED: SOD CHLORIDE 0.9% 1,000 ML IV STA (01:14)
[2016-09-28] MEDS ORDERED: FAMOTIDINE 20 MG INJ INJ STA (01:14)
[2016-09-28] MEDS ORDERED: DIPHENHYDRAMINE 50 MG INJ IV STA (01:14)
[2016-09-28] MEDS ORDERED: METHYLPREDNISOLONE 125 MG INJ IV STA (01:14)
--- NOTE | 2016-09-28 01:44 | ERD ---
ER Documentation Chief Complaint Date/Time DATE: 09/28/16 TIME: 01:41 Chief Complaint rash and itch HPI This is a 21-year-old female who is 1 month who presents to the emergency room for evaluation of a rash which is itchy. The patient did state that she drank milk and she developed some itchy this after drinking milk. She then states that she drank milk again for some unknown reason and developed worse itchiness. She states that she now has a rash on her left shoulder left arm, and on her neck. She denies any throat swelling or difficulty swallowing or shortness of breath at this time. She was brought to the ER for evaluation. She does state that she is breast-feeding at this time. ROS All systems reviewed and are negative except as per history of present illness. Medications Home Meds Reported Medications Multivit/Min/Fol Ac/Iron/Pren* ( S*) Unknown Strength Tab, PO DAILY, TAB 01/29/16 Allergies Allergies: Coded Allergies: No Known Allergy (Unverified , 09/14/16) PMhx/Soc Medical and Surgical Hx: pt denies Medical Hx, pt denies Surgical Hx History of Surgery: No Anesthesia Reaction: No Hx Neurological Disorder: No Hx Respiratory Disorders: No Hx Cardiac Disorders: No Hx Psychiatric Problems: No Hx Miscellaneous Medical Probl: No (DENIES MED AND SURG HX.) Hx Alcohol Use: No Hx Substance Use: No Hx Tobacco Use: Yes Smoking Status: Current every day smoker Physical Exam Vitals Vital Signs Date Time Temp Pulse Resp B/P Pulse Ox O2 Delivery O2 Flow Rate FiO2 09/28/16 00:39 98.9 102 18 135/77 100 Physical Exam INITIAL VITAL SIGNS: Reviewed by me GENERAL: The patient is well developed and appropriate for usual state of health in no apparent distress HEENT: Pupils equal, round, and reactive to light. EOMI. There is no scleral icterus. NECK: C-spine is soft and supple, there is no meningismus. There is no cervical lymphadenopathy. LUNGS: Clear to auscultation bilaterally. There are no rales, wheezes or rhonchi. HEART: Regular rate and rhythm, no murmurs, clicks, rubs or gallops. ABDOMEN: Soft, non-tender, non-distended. There are bowel sounds in all four quadrants. No rebound or guarding. EXTREMITIES: There is no peripheral cyanosis or edema. No focal swelling or erythema. NEUROLOGICAL: The patient moves all four extremities with 5/5 strength. Cranial nerves II - XII are intact. Normal gait. Alert and oriented SKIN: Maculopapular rash noted over the left shoulder, left and right upper extremities, negative skin sloughing HEME/LYMPHATIC: There is no evidence of excessive bruising or lymphedema. PSYCHIATRIC: The patient does not appear anxious or depressed. Results 24 hrs Current Medications Medications (Trade) Dose Ordered Sig/Tavon Route PRN Reason Start Time Stop Time Status Last Admin Dose Admin Diphenhydramine HCl (Benadryl) 25 mg ONCE STAT IV 09/28/16 01:14 09/28/16 01:16 DC 09/28/16 01:21 Famotidine (Pepcid Iv) 20 mg ONCE STAT INJ 09/28/16 01:14 09/28/16 01:16 DC 09/28/16 01:21 Methylprednisolone Sodium Succinate 125 mg 125 mg ONCE STAT IV 09/28/16 01:14 09/28/16 01:16 DC 09/28/16 01:21 Sodium Chloride (NS) 1,000 ml @ 1,000 mls/hr Q1H STAT IV 09/28/16 01:14 09/28/16 02:13 09/28/16 01:21 Procedures/MDM This 21-year-old female presents to the ER for evaluation of a rash. When I evaluated this patient she did have a maculopapular rash and she was itching. I did give her a cocktail of Benadryl, Pepcid, Solu-Medrol and IV fluids. Upon reevaluation she states she is feeling better. She does say she is formula at home and advised her that after Benadryl she should not breast-feed for 8 hours. She states that she can give her child formula for the next 3 days. The patient will be discharged home with a prescription for Benadryl for the next 3 days and instructions to abstain from drinking milk. I also advised her she needs to get allergy tested Departure Diagnosis: Primary Impression: Allergic reaction Condition: Stable AIDAN SKAGGS DO Sep 28, 2016 01:44
[2016-09-28] MEDS ORDERED: BEN25 PO (01:45)
[2016-09-28 02:03] VITALS: BP 132/71; PULSE 72; RESP 18
== END 2016-09-28 02:16 | disposition home or self-care (01) ==
LOC: E/R 00:23
DX: R21 Rash and other nonspecific skin eruption (principal); F17.210 Nicotine dependence, cigarettes, uncomplicated
CPT/HCPCS: 96374; 96375; J1200; J2930; J7030; Z7502; Z7610